=== PATIENT | female | born 1965 | race Caucasian/White ===

== ENCOUNTER 2024-10-28 23:37 | Inpatient (IN) | payer MEDICARE, SELFPAY ==
--- NOTE | 2024-10-28 23:47 | ED_ITS ---
Discharge Plan Disposition Patient Disposition: Admitted Condition: Fair Chief Complaint: Nausea/Vomiting/Diarrhea Prescriptions Prescriptions: No Action atorvastatin 40 mg Tablet 40 mg PO DAILY hydrochlorothiazide 25 mg Tablet 25 mg PO DAILY ergocalciferol (vitamin D2) [Drisdol] 1,250 mcg (50,000 unit) Capsule 1,250 mcg PO WEEKLY estradiol 0.01 % (0.1 mg/gram) Cream 1 appful VAGINAL DAILY Rx Instructions: for 14 days albuterol sulfate 2.5 mg/0.5 mL Solution For Nebulization 2.5 mg INHALATION Q20M Rx Instructions: for up to 3 doses Zyrtec 10 mg Capsule 10 mg PO DAILY cariprazine 1.5 mg Capsule 1.5 mg PO DAILY potassium chloride 10 mEq Capsule, Extended Release 10 meq PO BID levothyroxine [Synthroid] 75 mcg Tablet 75 mcg PO DAILY hydroxyzine HCl [Atarax] 25 mg Tablet 25 mg PO DAILY venlafaxine [Effexor XR] 75 mg Capsule,Extended Release 24hr 75 mg PO DAILY sumatriptan succinate [Imitrex] 50 mg Tablet 50 mg PO Q2H PRN (Reason: Migraine) Rx Instructions: do not exceed 4 doses per 24 hrs thiamine HCl (vitamin B1) 100 mg Tablet 100 mg PO DIRECTED spironolactone [Aldactone] 25 mg Tablet 25 mg PO DAILY promethazine 25 mg Tablet 25 mg PO TID PRN (Reason: Nausea And Vomiting) oxycodone-acetaminophen [Percocet] 7.5-325 mg Tablet 1 tab PO Q6H PRN (Reason: Wound Healing) topiramate [Topamax] 100 mg Tablet 100 mg PO DAILY nystatin 1 billion unit Powder 1 unit PO 5XDAY tizanidine [Zanaflex] 4 mg Capsule 4 mg PO DAILY Referrals Follow up/Referrals: Lunsford,Viral, DO [Primary Care Provider] - See instructions Clinical Impressions Clinical Impression: Pancolitis, Hyponatremia, Hypokalemia, Diarrhea Instructions Patient Instructions: DI for Diarrhea and Traveler's Diarrhea -- Adult, DI for Diarrhea and Traveler's Diarrhea -- Child, DI for Nausea -- Adult, DI for Nausea -- Child Discharge ED Provider: Merna Osullivan Adult [facility] General Chief complaint: Nausea/Vomiting/Diarrhea Stated complaint: diarrhea, blood in stool, nausea Time Seen by Provider: 10/28/24 23:40 History of Present Illness HPI narrative: 58-year-old female with a history of gastric bypass 3 years ago and reported previous admission for low potassium presents to the ER for complaints of diarrhea, nausea, diffuse abdominal discomfort. Reportedly she started having diarrhea 5 days ago, in the last 2 days she has had dark, tarry stool as well as blood-streaked stool. No fevers. She reports nausea but no vomiting. Patient does not drink any alcohol, no marijuana or illicit drugs. She reports no dysuria or hematuria. Patient reports no known sick exposures. She is drinking but states she has not been eating. Reports 10 pounds weight loss in the last week secondary to symptoms. Related Data Home Medications ?Medication ?Instructions ?Recorded ?Confirmed albuterol sulfate 2.5 mg/0.5 mL 2.5 mg inhalation Q20M 10/29/24 10/29/24 solution for nebulization atorvastatin 40 mg tablet 40 mg PO DAILY 10/29/24 10/29/24 cariprazine 1.5 mg capsule 1.5 mg PO DAILY 10/29/24 10/29/24 cetirizine 10 mg capsule (Zyrtec) 10 mg PO DAILY 10/29/24 10/29/24 ergocalciferol (vitamin D2) 1,250 1,250 mcg PO WEEKLY 10/29/24 10/29/24 mcg (50,000 unit) capsule estradiol 0.01% (0.1 mg/gram) 1 appful vaginal DAILY 10/29/24 10/29/24 vaginal cream hydrochlorothiazide 25 mg tablet 25 mg PO DAILY 10/29/24 10/29/24 hydroxyzine HCl 25 mg tablet 25 mg PO DAILY 10/29/24 10/29/24 levothyroxine 75 mcg tablet 75 mcg PO DAILY 10/29/24 10/29/24 (Synthroid) nystatin 1 billion unit oral powder 1 unit PO 5XDAY 10/29/24 10/29/24 oxycodone-acetaminophen 7.5 mg-325 1 tab PO Q6H PRN Wound Healing 10/29/24 10/29/24 mg tablet (Percocet) potassium chloride 10 mEq 10 meq PO BID 10/29/24 10/29/24 capsule,extended release promethazine 25 mg tablet 25 mg PO TID PRN Nausea And 10/29/24 10/29/24 Vomiting spironolactone 25 mg tablet 25 mg PO DAILY 10/29/24 10/29/24 (Aldactone) sumatriptan succinate 50 mg tablet 50 mg PO Q2H PRN Migraine 10/29/24 10/29/24 (Imitrex) thiamine HCl (vitamin B1) 100 mg 100 mg PO DIRECTED 10/29/24 10/29/24 tablet tizanidine 4 mg capsule (Zanaflex) 4 mg PO DAILY 10/29/24 10/29/24 topiramate 100 mg tablet (Topamax) 100 mg PO DAILY 10/29/24 10/29/24 venlafaxine 75 mg capsule,extended 75 mg PO DAILY 10/29/24 10/29/24 release 24 hr (Effexor XR) Allergies Allergy/AdvReac Type Severity Reaction Status Date / Time escitalopram (From Lexapro) Allergy Unknown Verified 10/28/24 23:59 allergy reaction [facility] Disclaimer: The information contained in this section may have been updated after the patient was seen, as this information can be updated by other users. Social History Smoking Status: Unknown if ever smoked alcohol intake: never current occupational status: other Travel in the last 8 weeks?: None ROS Obtained: Yes Systems reviewed as appropriate & no additional complaints except as documented Per HPI Physical Exam General General appearance: alert, in no apparent distress and obese Head Head exam: atraumatic and normocephalic Eye Eye exam: Present PERRL and EOMI ENT ENT exam: Present mucous membranes moist Neck Neck exam: Present normal inspection and full ROM Chest Chest inspection: Present symmetric chest wall rise Respiratory Respiratory exam: Present normal lung sounds bilaterally; Absent respiratory distress, wheezes or stridor Cardiovascular Cardiovascular exam: Present normal rhythm and tachycardia Abdominal Exam Abdominal exam: Present soft and tenderness (Mild diffuse); Absent distention, guarding or rebound Extremities Exam Extremities exam: Present full ROM Neurological Exam Neurological exam: Present alert and oriented X3; Absent motor sensory deficit Psychiatric Psychiatric exam: Present normal affect and normal mood Skin Skin exam: Present warm and dry Medical Decision Making Medical Records Screening: Per USPSTF and CDC recommendations, given the prevalence of disease in our region, it is our hospital?s policy to screen for HIV and viral Hepatitis for all patients aged 18 and over and those with ongoing risk factors. Jak Inquiry Pt receiving controlled substance: No Vital Signs: 10/28/24 23:59 10/29/24 00:00 10/29/24 01:00 Temperature 97.9 F Temperature Source Oral Pulse Rate 119 H Pulse Rate [Left] 123 H Respiratory Rate 18 20 12 Blood Pressure Blood Pressure [Right Arm] 133/105 H Blood Pressure Mean [Right Arm] 114 02 Sat by Pulse Oximetry 96 96 Oxygen Delivery Method Room Air 10/29/24 01:30 Temperature Temperature Source Pulse Rate 105 H Pulse Rate [Left] Respiratory Rate 11 L Blood Pressure 140/98 H Blood Pressure [Right Arm] Blood Pressure Mean [Right Arm] 02 Sat by Pulse Oximetry 96 Oxygen Delivery Method Lab Data Lab Results 10/28/24 23:53: WBC 26.9 H*, RBC 5.65 H, Hgb 16.9 H, Hct 48.0 H, MCV 85.0, MCH 29.9, MCHC 35.2, RDW 13.4, Plt Count 355, MPV 10.9 H, Neut % (Auto) 80.6 H, Lymph % (Auto) 10.3, [place] % (Auto) 8.0, Eos % (Auto) 0.1, Baso % (Auto) 0.4, N eut # (Auto) 21.7 H, Lymph # (Auto) 2.8, [place] # (Auto) 2.1 H, Eos # (Auto) 0.0, Baso # (Auto) 0.1, Sodium 127 L, Potassium 2.6 L*, Chloride 95 L, Carbon Dioxide 23, Anion Gap 11.6, BUN 18 H, Creatinine 1.20 H, Estimated GFR 46 L, Est GFR ( Amer) 55 L, Glucose 178 H, Calcium 8.4, Total Bilirubin 0.6, AST 23, ALT 21, Alkaline Phosphatase 102, Troponin I 0.03, Total Protein 6.9, Albumin 4.0, Globulin 2.9, Albumin/Globulin Ratio 1.4 10/29/24 00:44: Lactate 2.0 10/28/24 23:53 10/28/24 23:53 Orders (Tests/Meds): ED MEDICATIONS Generic Name Dose Route Start Last Admin Trade Name Freq PRN Reason Stop Dose Admin Potassium Chloride/Water 100 mls @ 50 mls/hr 10/29/24 00:30 10/29/24 01:10 Potassium Chloride 20meq/100ml Ivpb IV 10/29/24 06:29 50 mls/hr Q2H JOSLYN Administration Discontinued Medications Generic Name Dose Route Start Last Admin Trade Name Marloq PRN Reason Stop Dose Admin Lactated Ringer's 1,000 mls @ 999 mls/hr 10/28/24 23:41 10/29/24 00:01 Lactated Ringer's 1000 Ml Bag IV 10/29/24 00:41 999 mls/hr .Q1H1M ONE Administration Cefepime HCl 2 gm/ Sodium 100 mls @ 200 mls/hr 10/29/24 00:28 Chloride IV 10/29/24 00:57 ONCE ONE Metronidazole 500 mg in 100 mls @ 100 mls/hr 10/29/24 00:28 10/29/24 01:10 Flagyl 500mg/100ml Ivpb IV 10/29/24 01:27 100 mls/hr ONCE ONE Administration Lactated Ringer's 1,000 mls @ 999 mls/hr 10/29/24 00:28 10/29/24 01:10 Lactated Ringer's 1000 Ml Bag IV 10/29/24 01:28 999 mls/hr .Q1H1M ONE Administration Iopamidol 80 ml 10/29/24 00:29 10/29/24 00:33 Iopamidol-370 (76%);100ml Bottle IV 10/29/24 00:30 80 ml ONCE ONE Administration Ondansetron HCl 4 mg 10/28/24 23:41 10/29/24 00:01 Ondansetron 4mg/2ml Vial IV 10/28/24 23:42 4 mg ONCE ONE Administration Sodium Chloride 50 ml 10/29/24 00:29 10/29/24 00:34 0.9 % Sodium Chloride 50 Ml Vial IV 10/29/24 00:30 50 ml ONCE ONE Administration Sodium Chloride 10 ml 10/29/24 00:29 10/29/24 00:34 Sodium Chloride 0.9% 10ml Syr (Rad Only) IV 10/29/24 00:30 10 ml ONCE ONE Administration ORDERS Category Date Time Status CT angio abd/pel - GI Bleed Stat Cat Scan 10/28/24 23:56 Completed CBC w/Auto Diff [Complete Blood Count Auto Diff] Stat Lab 10/28/24 23:53 Results CMP [Comprehensive Metabolic Panel] Stat Lab 10/28/24 23:53 Completed Diarrhea 6-11 Panel, Cdiff PCR Stat Lab 10/28/24 23:46 Ordered HIV Combo Stat Lab 10/29/24 00:14 Received Hepatitis C Ab Qual. W/ RFX Stat Lab 10/29/24 00:14 Received Lactic Acid Stat Lab 10/28/24 23:41 Completed Occult Blood,Stool Stat Lab 10/29/24 01:43 Ordered Trop I [Troponin I] Stat Lab 10/28/24 23:53 Completed Troponin I Q3H Lab 10/29/24 02:45 Ordered Troponin I Q3H Lab 10/29/24 05:45 Ordered Blood Culture Stat Micro 10/29/24 01:52 Ordered ECG Request Stat Y 10/28/24 23:41 Ordered Tissue Perfus/Sepsis Re-Eval Sepsis Re-Evaluation Performed: Yes Date Performed: 10/29/24 Time Performed: 02:00 Medical Decision Narrative: In summary, this 58-year-old female with comorbidities described in the HPI presents to the emergency department today with diffuse abdominal discomfort, diarrhea, nausea, tarry/bloody stool. On initial evaluation patient is tachycardic but otherwise hemodynamically stable, afebrile, she has mild diffuse tenderness to palpation of the abdomen without rebound or guarding, no peritonitic findings, rectal exam without overt bleeding. Differential diagnosis includes but is not limited to viral syndrome, diverticulosis, diverticulitis, pancreatitis, I have low suspicion for but did consider the possibility of mesenteric ischemia, also considered upper GI bleed, lower GI bleed, anemia, electrolyte abnormality, dehydration, kidney dysfunction, atypical presentation of ACS, among others. Based on these concerns, I ordered serum labs, diarrhea panel, cardiac workup, CT imaging. ECG personally interpreted demonstrates sinus tachycardia, rate 123, left axis deviation, normal WA and QTc, no STEMI. Labs personally reviewed demonstrate significant leukocytosis with WBC 26.9, no anemia, platelets normal, patient does have neutrophil predominance, patient has hyponatremia, hypokalemia, hypochloremia consistent with volume losses. BUN and creatinine are slightly elevated but no comparison from previous. Initial troponin 0.03 but ECG is reassuring. Serial troponin pending. Patient has not yet been able to provide diarrhea sample. CT abdomen pelvis personally interpreted does not demonstrate findings of obstruction or ischemia, questionable area of bleeding versus dense material or contrast in the lumen of the intestines. Pancolitis present. See radiology read for final interpretation. While patient does possibly have active bleeding on imaging, she is hemodynamically stable with no evidence of blood loss in the ER. She has not been able to provide a stool sample which is reassuring against severe loss. She also is not anemic or pale and has normal capillary refill. Patient's labs and vitals are concerning for sepsis with the source of intra- abdominal infection. Patient is already receiving IV fluids but I also ordered cefepime and Flagyl. Patient is receiving 2 L IV fluids for 30 mL/kg between the patient's ideal body weight and adjusted body weight. Blood cultures added to workup. On reevaluation patient's heart rate is improved. Hemoccult pending. I believe she is appropriate for admission at this time. I discussed this case with the hospitalist who graciously accepted the patient for admission. Critical Care Critical Care Time Critical Care Time: Yes Attestation: On , the high probability of a clinically significant, sudden or life threatening deterioration of the following system(s) required my full and direct attention, intervention and personal management. The time I documented below is in addition to time spent performing reported procedures but includes the following listed in this critical care notation. Total Time Total Critical Care Time: 35
--- NOTE | 2024-10-28 23:56 | CT_ITS ---
PROCEDURE INFORMATION: Exam: CTA Abdomen and Pelvis With Contrast Exam date and time: 10/29/2024 12:26 AM Age: 58 years old Clinical indication: Abdominal pain; Acute; Additional info: Diffuse abd discomfort, tarry/bloody stool TECHNIQUE: Imaging protocol: Computed tomographic angiography of the abdomen and pelvis with contrast. Exam focused on the arteries. 3D rendering (Not supervised by radiologist): MIP and/or 3D reconstructed images were created by the technologist. Radiation optimization: All CT scans at this facility use at least one of these dose optimization techniques: automated exposure control; mA and/or kV adjustment per patient size (includes targeted exams where dose is matched to clinical indication); or iterative reconstruction. Contrast material: ISOVUE; Contrast volume: 80 ml; Contrast route: INTRAVENOUS (IV); COMPARISON: No relevant prior studies available. FINDINGS: Aorta: No aortic aneurysm. No aortic dissection. Celiac trunk and mesenteric arteries: No occlusion or significant stenosis. Renal arteries: No occlusion or significant stenosis. Right iliac arteries: No occlusion or significant stenosis. Left iliac arteries: No occlusion or significant stenosis. Liver: No mass. Gallbladder and biliary ducts: Cholecystectomy Pancreas: Unremarkable. No mass. No ductal dilation. Spleen: Unremarkable. No splenomegaly. Adrenal glands: Unremarkable. No mass. Kidneys and ureters: Cortical scarring right kidney. No hydronephrosis Stomach and bowel: Severe colitis in the descending, transverse, ascending colons with wall thickening and surrounding inflammatory changes. No small bowel obstruction. There is hyperdensity within the cecum and ileocecal region and distal ileum the as well as scattered in the descending colon and rectosigmoid colons the which could reflect a administration of prior oral contrast or less likely multiple areas of active GI bleeding. Postsurgical changes in the stomach Appendix: No evidence of appendicitis. Intraperitoneal space: Mild free fluid in the pelvis Lymph nodes: Unremarkable. No enlarged lymph nodes. Urinary bladder: Unremarkable. No mass. Reproductive: Hysterectomy Bones/joints: No acute fracture. Soft tissues: Unremarkable. IMPRESSION: 1. Severe near pancolitis. 2. There is hyperdensity within the cecum and ileocecal region and distal ileum the as well as scattered in the descending colon and rectosigmoid colons the which could reflect a administration of prior oral contrast or less likely multifocal areas of active GI bleeding. Correlate clinically
--- NOTE | 2024-10-28 23:56 | ECG_ITS ---
APPROVED REPORT Exam: Resting ECG HR:123 bpm ECG Measurements Heart Rate 123 AXES UT 161 P 54 QRSd 94 QRS -68 QT 417 T 78 QTc 490 Conclusion SINUS TACHYCARDIA LEFT AXIS DEVIATION [QRS AXIS < -30] PATTERN CONSISTENT WITH PULMONARY DISEASE ST DEVIATION AND MODERATE T-WAVE ABNORMALITY, CONSIDER LATERAL ISCHEMIA [-0.1+ mV T-WAVE IN I/aVL/V5/V6] No STEMI Electronically signed by : LISA MCLEAN, 10/29/2024 05:18:35
[2024-10-28 23:59] VITALS: BP 133/105; PULSE 123; RESP 18; TEMP 36.6; O2SAT 96; BMI 39.1
[2024-10-29] VITALS (11 sets, daily range): BP systolic 132–162; BP diastolic 68–99; PULSE 86–119; RESP 11–20; TEMP 36.5–37.1; O2SAT 92–100; BMI 39.9
[2024-10-29] LABS: Basophils # 0.1 K/mm3 (0-0.2); Basophils % 0.4 % (0.1-2.0); Eosinophils % 0.1 % (0.1-12.0); Hemoglobin 16.9 g/dL (12.2-16.2); Lymphocytes # 2.8 K/mm3 (0.7-4.5); Lymphocytes % 10.3 % (10-50); Mean Corpuscular HGB Conc 35.2 g/dL (31.8-35.4); Mean Corpuscular Hemoglobin 29.9 pg (27.0-31.2); Mean Platelet Volume 10.9 fl (7.4-10.4); Monocytes # 2.1 K/mm3 (0.1-1.0); Neutrophils # 21.7 K/mm3 (1.8-7.8); Neutrophils % 80.6 % (37.0-80.0); Nucleated Red Blood Cells # 0 10^3/uL; Nucleated Red Blood Cells % 0 %; Platelet Count 355 K/mm3 (142-424); Red Blood Count 5.65 M/mm3 (4.20-5.40); Red Cell Distribution Width 13.4 % (11.5-17.5); Red Cell Distribution Width-SD 41.5 fL; White Blood Count 26.9 K/mm3 (4.8-10.8)
[2024-10-29] MEDS: LACTATED RINGERS 1000ML 1,000 ML 999 ML IV ×2 (00:01→01:10)
[2024-10-29] MEDS: ONDANSETRON 4MG/2ML VIAL 4 MG IV ×3 (00:01→20:39)
[2024-10-29 00:12] LABS: Alanine Aminotransferase 21 U/L (12-78); Albumin/Globulin Ratio 1.4 (1.1-1.8); Alkaline Phosphatase 102 U/L (38-126); Anion Gap 11.6 mEq/L (5-15); Aspartate Amino Transferase 23 U/L (14-36); Bilirubin,Total 0.6 mg/dl (0.2-1.3); Blood Urea Nitrogen 18 mg/dl (7-17); Calcium 8.4 mg/dl (8.4-10.2); Carbon Dioxide 23 mmol/L (22.0-30.0); Chloride 95 mmol/L (98-107); Estimated Glomerular Filt Rate 46 ml/min (>60); GFR (African American) 55 ML/MIN (>60); Globulin 2.9 g/dL (1.3-3.2); Glucose 178 mg/dl (74-100); Sodium 127 mmol/L (136-145); Total Protein,Serum 6.9 g/dl (6.3-8.2)
[2024-10-29 00:15] LABS: MANUAL DIFFERENTIAL MANUAL DIFFERENTIAL (MANUAL DIFF)
[2024-10-29 00:16] LABS: Potassium 2.6 mmoL/L (3.5-5.1)
[2024-10-29 00:24] LABS: Troponin I 0.03 ng/ml (0.00-0.034)
[2024-10-29] MEDS: IOPAMIDOL-370 (76%);100ML BOTTLE 80 ML IV (00:33)
[2024-10-29] MEDS: 0.9 % SODIUM CHLORIDE 50 ML VIAL IV (00:34)
[2024-10-29] MEDS: SODIUM CHLORIDE 0.9% 10ML SYR (RAD ONLY) 10 ML IV (00:34)
[2024-10-29] MEDS: METRONIDAZ/SOD CHL 500 MG/100 ML PIGGYBACK 100 MG IV ×2 (01:10→08:28)
[2024-10-29] MEDS: KCl 20mEq/100ml 100 ML 50 MEQ IV ×3 (01:10→06:04)
[2024-10-29 02:03] LABS: Occult Blood,Stool Positive (Negative)
[2024-10-29] MEDS: CEFEPIME HCL 2 GM in 0.9 % SODIUM CHLORIDE 100 ML IV (02:20)
[2024-10-29 02:32] LABS: HIV Combo NEGATIVE (Negative)
--- NOTE | 2024-10-29 02:34 | P.HP_ITS ---
History of Present Illness *Reason for visit:: diarrhea *History of present illness: 58-year-old female comes ER for evaluation of abdominal pain, diarrhea, poor p.o. intake, possibly melena. Started having diarrhea 5 days ago, in the last 2 days she has had dark, tarry stool as well as blood-streaked stool. Has not been able to tolerate p.o. food intake for the last few days and feels that her symptoms have been progressing. No dietary changes. Has been tolerating some fluid intake. No fevers. She reports nausea but no vomiting. Received cefepime and Flagyl in the emergency department in addition to IV fluids. Stool occult positive No current stool sample in the ER. Patient does not drink any alcohol, no marijuana or illicit drugs. She reports no dysuria or hematuria. Patient reports no known sick exposures. She is drinking but states she has not been eating. Reports 10 pounds weight loss in the last week secondary to symptoms. history of gastric bypass 3 years ago, previous admission for hypokalemia CTA abdomen pelvis IMPRESSION: 1. Severe near pancolitis. 2. There is hyperdensity within the cecum and ileocecal region and distal ileum the as well as scattered in the descending colon and rectosigmoid colons the which could reflect a administration of prior oral contrast or less likely multifocal areas of active GI bleeding. Correlate clinically PFSH [facility] Disclaimer: The information contained in this section may have been updated after the patient was seen, as this information can be updated by other users. Social History (Updated 10/29/24 @ 02:00 by Orestes Osullivan MD) Smoking Status: Unknown if ever smoked alcohol intake: never current occupational status: other Travel in the last 8 weeks?: None Have you lived/traveled outside US in past 30 days?: No Contact w/someone who lives/traveled outside US past 30 days?: No Exposure to someone with infectious disease in past 14 days?: No Do you have a fever (greater than 100.4 F or 38 C)?: No Have you tested positive for COVID-19?: No Exposed to someone with COVID-19 in past 14 days?: No Do you have a sore throat?: No Do you have a cough?: No Do you have any weakness?: No Do you have any diarrhea?: Yes Are you experiencing any unusual bleeding?: Yes Do you have any muscle aches/pain?: No Do you have any abdominal pain?: No Are you experiencing loss of taste or smell?: No Review of Systems Review of Systems Review of systems:: pertinent systems reviewed and negative unless documented below Constitutional Constitutional: Reports anorexia and Denies body ache(s) Eyes Eyes: Reports system reviewed and no additional complaints, except as documented ENT Ears, Nose, Mouth, and Throat: Reports system reviewed and no additional complaints, except as documented *Cardiovascular Cardiovascular: Reports system reviewed and no additional complaints, except as documented *Respiratory Respiratory: Reports system reviewed and no additional complaints, except as documented *Gastrointestinal Gastrointestinal: Reports abdominal pain, Reports change in bowel habits and Reports change in stool character *Genitourinary Genitourinary: Reports system reviewed and no additional complaints, except as documented *Musculoskeletal Musculoskeletal: Reports system reviewed and no additional complaints, except as documented *Neurologic Neurologic: Reports system reviewed and no additional complaints, except as documented Psychiatric Psychiatric: Reports system reviewed and no additional complaints, except as documented Meds Home Medications and Allergies Home Medications ?Medication ?Instructions ?Recorded ?Confirmed ?Type albuterol sulfate 2.5 mg/0.5 mL 2.5 mg inhalation Q20M 10/29/24 10/29/24 History solution for nebulization atorvastatin 40 mg tablet 40 mg PO DAILY 10/29/24 10/29/24 History cariprazine 1.5 mg capsule 1.5 mg PO DAILY 10/29/24 10/29/24 History cetirizine 10 mg capsule (Zyrtec) 10 mg PO DAILY 10/29/24 10/29/24 History ergocalciferol (vitamin D2) 1,250 1,250 mcg PO WEEKLY 10/29/24 10/29/24 History mcg (50,000 unit) capsule estradiol 0.01% (0.1 mg/gram) 1 appful vaginal DAILY 10/29/24 10/29/24 History vaginal cream hydrochlorothiazide 25 mg tablet 25 mg PO DAILY 10/29/24 10/29/24 History hydroxyzine HCl 25 mg tablet 25 mg PO DAILY 10/29/24 10/29/24 History levothyroxine 75 mcg tablet 75 mcg PO DAILY 10/29/24 10/29/24 History (Synthroid) nystatin 1 billion unit oral powder 1 unit PO DAY 10/29/24 10/29/24 History oxycodone-acetaminophen 7.5 mg-325 1 tab PO Q6H PRN Wound Healing 10/29/24 10/29/24 History mg tablet (Percocet) potassium chloride 10 mEq 10 meq PO BID 10/29/24 10/29/24 History capsule,extended release promethazine 25 mg tablet 25 mg PO TID PRN Nausea And 10/29/24 10/29/24 History Vomiting spironolactone 25 mg tablet 25 mg PO DAILY 10/29/24 10/29/24 History (Aldactone) sumatriptan succinate 50 mg tablet 50 mg PO Q2H PRN Migraine 10/29/24 10/29/24 History (Imitrex) thiamine HCl (vitamin B1) 100 mg 100 mg PO DIRECTED 10/29/24 10/29/24 History tablet tizanidine 4 mg capsule (Zanaflex) 4 mg PO DAILY 10/29/24 10/29/24 History topiramate 100 mg tablet (Topamax) 100 mg PO DAILY 10/29/24 10/29/24 History venlafaxine 75 mg capsule,extended 75 mg PO DAILY 10/29/24 10/29/24 History release 24 hr (Effexor XR) New Prescriptions to Start Prescriptions: Allergies Allergy/AdvReac Type Severity Reaction Status Date / Time escitalopram (From Lexapro) Allergy Unknown Verified 10/28/24 23:59 allergy reaction Exam Data for Last 24 hours Vital signs and Labs for Last 24 Hours: Temp Pulse Resp BP Pulse Ox O2 Del Method 97.9 F 113 H 12 140/98 H 98 Room Air 10/28/24 23:59 10/29/24 02:00 10/29/24 02:00 10/29/24 01:30 10/29/24 02:00 10/28/24 23:59 Laboratory Results - last 24 hr 10/28/24 00:00: HIV Ag/Ab Combo Qual Negative 10/28/24 23:53: WBC 26.9 H*, RBC 5.65 H, Hgb 16.9 H, Hct 48.0 H, MCV 85.0, MCH 29.9, MCHC 35.2, RDW 13.4, Plt Count 355, MPV 10.9 H, Neut % (Auto) 80.6 H, Lymph % (Auto) 10.3, [place] % (Auto) 8.0, Eos % (Auto) 0.1, Baso % (Auto) 0.4, Neut # (Auto) 21.7 H, Lymph # (Auto) 2.8, [place] # (Auto) 2.1 H, Eos # (Auto) 0.0, Baso # (Auto) 0.1, Sodium 127 L, Potassium 2.6 L*, Chloride 95 L, Carbon Dioxide 23, Anion Gap 11.6, BUN 18 H, Creatinine 1.20 H, Estimated GFR 46 L, Est GFR ( Amer) 55 L, Glucose 178 H, Calcium 8.4, Total Bilirubin 0.6, AST 23, ALT 21, Alkaline Phosphatase 102, Troponin I 0.03, Total Protein 6.9, Albumin 4.0, Globulin 2.9, Albumin/Globulin Ratio 1.4 10/29/24 00:44: Lactate 2.0 10/29/24 01:49: Stool Occult Blood Positive A I & O for Last 24 hours: Intake & Output 10/26/24 10/27/24 10/28/24 10/29/24 23:59 23:59 23:59 23:59 Weight 103.419 kg Constitutional Constitutional: no acute distress *Routine HEENT Exam Head: Present normocephalic Eye: Present EOMI ENT: Present mucous membranes moist *Routine Neck Exam Neck: Present supple and full ROM *Routine Respiratory Exam Respiratory: Present CTA bilaterally; Absent accessory muscle use *Routine Cardiovascular Exam Cardiovascular: Present RRR, Normal S1 and Normal S2; Absent murmur *Routine Abdominal Exam Abdominal: Present soft and normoactive bowel sounds *Routine Rectal Exam Rectal:: deferred *Routine Genitalia Exam Genitalia:: deferred *Routine Extremities Exam Extremities: Absent cyanosis or clubbing *Routine Skin Exam Skin: Present intact; Absent cyanosis *Routine Neurological Exam Neurological: Present alert and oriented X3 Assessment and Plan *Assessment and plan (1) Diarrhea: Status: Acute Category: Medical Code(s): R19.7 - Diarrhea, unspecified (2) Hypokalemia: Status: Acute Category: Medical Code(s): E87.6 - Hypokalemia (3) Pancolitis: Status: Acute Category: Medical Code(s): K52.9 - Noninfective gastroenteritis and colitis, unspecified Plan 58-year-old prior gastric bypass, admitted for Pancolitis. Additionally having poor p.o. intake and multiple electrolyte derangements. Antibiotics administered in the emergency department. Will try to obtain stool culture. Supportive management otherwise. GI consultation in the morning Pancolitis Melena - Cefepime - Flagyl - Obtain stool culture - GI consult hyponatremia, hypovolemic, normal mentation - Saline - Monitor Hypokalemia - Replete CKD - Reportedly stage III per patient, unknown creatinine baseline, will monitor dvt proph - held due to bleeding, lovenox in am gi ppx- ppi
[2024-10-29 02:37] LABS: Lymphocytes % 7 % (10-50); Monocytes % 1 % (2-9); Neutrophils % 92 % (42-76); Total Cells Counted 100
--- NOTE | 2024-10-29 02:37 | PC.NURSE ---
report called to [facility]
[2024-10-29 02:39] LABS: Hepatitis C Ab Qual. W/ RFX NEGATIVE (Negative)
[2024-10-29 02:39] LABS: Platelet Estimate Normal; Stomatocytes 1+
--- NOTE | 2024-10-29 02:51 | PC.NURSE ---
Patient arrived to floor via wheelchair from ED at 02:50.
[2024-10-29 03:14] LABS: Troponin I 0.03 ng/ml (0.00-0.034)
[2024-10-29] MEDS: MELATONIN 5MG TABLET 5 MG PO ×2 (03:20→20:39)
[2024-10-29] MEDS: TIZANIDINE 4MG TABLET 4 MG PO (03:21)
[2024-10-29] MEDS: LACTATED RINGERS 1000ML 1,000 ML 50 ML IV (03:23)
[2024-10-29 06:18] LABS: Basophils # 0.1 K/mm3 (0-0.2); Basophils % 0.4 % (0.1-2.0); Eosinophils % 0.2 % (0.1-12.0); Hematocrit 42.8 % (37.0-47.0); Lymphocytes # 2.8 K/mm3 (0.7-4.5); Lymphocytes % 12.6 % (10-50); Mean Corpuscular HGB Conc 34.6 g/dL (31.8-35.4); Mean Corpuscular Volume 86.8 fl (81-99); Monocytes % 8.8 % (1.7-9.3); Neutrophils # 17.4 K/mm3 (1.8-7.8); Neutrophils % 77.4 % (37.0-80.0); Nucleated Red Blood Cells # 0 10^3/uL; Nucleated Red Blood Cells % 0 %; Platelet Count 297 K/mm3 (142-424); Red Blood Count 4.93 M/mm3 (4.20-5.40); Red Cell Distribution Width 13.3 % (11.5-17.5); White Blood Count 22.5 K/mm3 (4.8-10.8)
[2024-10-29 06:23] LABS: Hemoglobin 14.8 g/dL (12.2-16.2)
[2024-10-29 06:37] LABS: Troponin I 0.03 ng/ml (0.00-0.034)
[2024-10-29] MEDS: ACETAMINOPHEN 325MG TAB 650 MG PO (07:41)
[2024-10-29 08:03] LABS: Albumin Level 3.1 g/dl (3.5-5.0); Chloride 97 mmol/L (98-107); Sodium 127 mmol/L (136-145)
[2024-10-29 08:05] LABS: Alanine Aminotransferase 14 U/L (12-78); Blood Urea Nitrogen 14 mg/dl (7-17); Creatinine Clearance Estimated 91 mL/min (50-200); Estimated Glomerular Filt Rate 51 ml/min (>60); GFR (African American) 61 ML/MIN (>60)
[2024-10-29 08:06] LABS: Albumin/Globulin Ratio 1.1 (1.1-1.8); Alkaline Phosphatase 91 U/L (38-126); Anion Gap 9.6 mEq/L (5-15); Aspartate Amino Transferase 29 U/L (14-36); Bilirubin,Total 0.5 mg/dl (0.2-1.3); Carbon Dioxide 23 mmol/L (22.0-30.0); Globulin 2.8 g/dL (1.3-3.2); Glucose 141 mg/dl (74-100); Magnesium 1.9 mg/dl (1.6-2.3); Phosphorous 2.4 mg/dl (2.5-4.5); Total Protein,Serum 5.9 g/dl (6.3-8.2)
--- NOTE | 2024-10-29 08:06 | P.CONS_ITS ---
History of Present Illness *History of present illness: Mrs. Naidu is a 58-year-old female who presented to the ED yesterday with diarrhea, abdominal pain and hematochezia/rectal bleeding with dark blood and clots. The patient states this all began about 5 or 6 days ago. She normally has constipation but then reverted to having diarrhea. She thought this may be related to her lupus but then she developed more abdominal pain 4 days ago. She has had a lot of gassiness and bloating. She had more intense cramps yesterday and came to the ED. In the ED, she had a CAT scan that showed severe pancolitis there was hyperdensity within the cecum and ileocecal region and distal ileum as well as an the descending and rectosigmoid region. This was felt to possibly be related to prior contrast. The patient did have a Nana-en-Y gastric bypass in 2021. She has had some long-term digestive issues and had been followed by [facility] in [facility]. The patient has had gradual weight loss since the bypass. She reports no mucus with her stools or family history of colon cancer. She does state that her last colonoscopy was approximately 5 years ago at [place] and she states that she would be due next year. Her father had multiple polyps (19 polyps on one colonoscopy). The patient has had several abdominal and pelvic surgeries (cholecystectomy, hysterectomy, 4 C-sections and left oophorectomy). She reports no fever. The patient's white blood cell count was 22,000 this morning. She is not anemic but her hemoglobin hematocrit declined from 16.9 and 48.0 down to 14.8 and 42.8. Her liver chemistries were normal. She does have stage III chronic kidney disease and her creatinine was 1.20. She is Hemoccult positive but PCR panel is not returned. [facility] Disclaimer: The information contained in this section may have been updated after the patient was seen, as this information can be updated by other users. Medical History (Updated 10/29/24 @ 08:12 by Jason Miles II, MD) Prolapse of uterus with rectocele Osteoarthritis Fibromyalgia Lupus Chronic kidney disease, stage 3 Irritable bowel syndrome (IBS) Hypertension Asthma Surgical History (Updated 10/29/24 @ 03:33 by Reyna Quinn RN) History of colonoscopy Hx of cholecystectomy H/O hernia repair History of removal of ovarian cyst History of H/O removal of cyst History of tonsillectomy Hx of breast reduction, elective Gastric bypass status for obesity Social History (Updated 10/29/24 @ 03:33 by Reyna Quinn RN) Smoking Status: Never smoker alcohol intake: never current occupational status: disabled Travel in the last 8 weeks?: None Have you lived/traveled outside US in past 30 days?: No Contact w/someone who lives/traveled outside US past 30 days?: No Exposure to someone with infectious disease in past 14 days?: No Do you have a fever (greater than 100.4 F or 38 C)?: No Have you tested positive for COVID-19?: No Exposed to someone with COVID-19 in past 14 days?: No Do you have a sore throat?: No Do you have a cough?: No Do you have any weakness?: No Are you experiencing any nausea/vomitting?: Yes Do you have any diarrhea?: Yes Are you experiencing any unusual bleeding?: Yes Do you have any muscle aches/pain?: No Do you have any abdominal pain?: No Are you experiencing loss of taste or smell?: No Review of Systems *Neurologic Neurologic: Reports system reviewed and no additional complaints, except as documented Meds Home Medications and Allergies Home Medications ?Medication ?Instructions ?Recorded ?Confirmed ?Type albuterol sulfate 2.5 mg/0.5 mL 2.5 mg inhalation Q20M 10/29/24 10/29/24 History solution for nebulization atorvastatin 40 mg tablet 40 mg PO DAILY 10/29/24 10/29/24 History cariprazine 1.5 mg capsule 1.5 mg PO DAILY 10/29/24 10/29/24 History cetirizine 10 mg capsule (Zyrtec) 10 mg PO DAILY 10/29/24 10/29/24 History ergocalciferol (vitamin D2) 1,250 1,250 mcg PO WEEKLY 10/29/24 10/29/24 History mcg (50,000 unit) capsule estradiol 0.01% (0.1 mg/gram) 1 appful vaginal DAILY 10/29/24 10/29/24 History vaginal cream hydrochlorothiazide 25 mg tablet 25 mg PO DAILY 10/29/24 10/29/24 History hydroxyzine HCl 25 mg tablet 25 mg PO DAILY 10/29/24 10/29/24 History levothyroxine 75 mcg tablet 75 mcg PO DAILY 10/29/24 10/29/24 History (Synthroid) nystatin 1 billion unit oral powder 1 unit PO 5XDAY 10/29/24 10/29/24 History oxycodone-acetaminophen 7.5 mg-325 1 tab PO Q6H PRN Wound Healing 10/29/24 10/29/24 History mg tablet (Percocet) potassium chloride 10 mEq 10 meq PO BID 10/29/24 10/29/24 History capsule,extended release promethazine 25 mg tablet 25 mg PO TID PRN Nausea And 10/29/24 10/29/24 History Vomiting spironolactone 25 mg tablet 25 mg PO DAILY 10/29/24 10/29/24 History (Aldactone) sumatriptan succinate 50 mg tablet 50 mg PO Q2H PRN Migraine 10/29/24 10/29/24 History (Imitrex) thiamine HCl (vitamin B1) 100 mg 100 mg PO DIRECTED 10/29/24 10/29/24 History tablet tizanidine 4 mg capsule (Zanaflex) 4 mg PO DAILY 10/29/24 10/29/24 History topiramate 100 mg tablet (Topamax) 100 mg PO DAILY 10/29/24 10/29/24 History venlafaxine 75 mg capsule,extended 75 mg PO DAILY 10/29/24 10/29/24 History release 24 hr (Effexor XR) New Prescriptions to Start Prescriptions: Allergies Allergy/AdvReac Type Severity Reaction Status Date / Time escitalopram (From Sunglass) Allergy Unknown Verified 10/28/24 23:59 allergy reaction Exam (Inpt) Vital signs and Labs for Last 24 Hours: Temp Pulse Resp BP Pulse Ox O2 Del Method 98.3 F 108 H 16 162/99 H 92 L Room Air 10/29/24 03:11 10/29/24 03:11 10/29/24 03:11 10/29/24 03:11 10/29/24 03:11 10/29/24 06:34 Laboratory Results - last 24 hr 10/28/24 00:00: HCV Ab STALIN w/Rflx PCR Qn Negative, HIV Ag/Ab Combo Qual Negative 10/28/24 23:53: WBC 26.9 H*, RBC 5.65 H, Hgb 16.9 H, Hct 48.0 H, MCV 85.0, MCH 29.9, MCHC 35.2, RDW 13.4, Plt Count 355, MPV 10.9 H, Neut % (Auto) 80.6 H, Lymph % (Auto) 10.3, [place] % (Auto) 8.0, Eos % (Auto) 0.1, Baso % (Auto) 0.4, N eut # (Auto) 21.7 H, Lymph # (Auto) 2.8, [place] # (Auto) 2.1 H, Eos # (Auto) 0.0, Baso # (Auto) 0.1, Total Counted 100, Neutrophils % (Manual) 92 H, Lymphocytes % (Manual) 7 L, Monocytes % (Manual) 1 L, Platelet Estimate Normal, Stomatocytes 1+, Sodium 127 L, Potassium 2.6 L*, Chloride 95 L, Carbon Dioxide 23, Anion Gap 11.6, BUN 18 H, Creatinine 1.20 H, Estimated GFR 46 L, Est GFR ( Amer) 55 L, Glucose 178 H, Calcium 8.4, Total Bilirubin 0.6, AST 23, ALT 21, Alkaline Phosphatase 102, Troponin I 0.03, Total Protein 6.9, Albumin 4.0, Globulin 2.9, Albumin/Globulin Ratio 1.4 10/29/24 00:44: Lactate 2.0 10/29/24 01:49: Stool Occult Blood Positive A 10/29/24 02:43: Troponin I 0.03 10/29/24 05:51: WBC 22.5 H*, RBC 4.93, Hgb 14.8 D, Hct 42.8, MCV 86.8, MCH 30.0, MCHC 34.6, RDW 13.3, Plt Count 297, MPV 11.0 H, Neut % (Auto) 77.4, Lymph % (Auto) 12.6, [place] % (Auto) 8.8, Eos % (Auto) 0.2, Baso % (Auto) 0.4, Neut # (Auto) 17.4 H, Lymph # (Auto) 2.8, [place] # (Auto) 2.0 H, Eos # (Auto) 0.0, Baso # (Auto) 0.1 10/29/24 05:56: Troponin I 0.03 I & O for Labs for Last 24 Hours: Intake & Output 10/26/24 10/27/24 10/28/24 10/29/24 23:59 23:59 23:59 23:59 Output Total 0 / 0 Balance 0 / 0 Weight 228 lb 233 lb 9.6 oz GI: Present soft Comments:: Mild gaseous distention and moderate tenderness in the lower quadrants, no rebound or guarding, no masses, no hernias Results Labs 10/29/24 05:51 10/28/24 23:53 Labs: Laboratory Results - last 24 hr 10/28/24 00:00: HCV Ab STALIN w/Rflx PCR Qn Negative, HIV Ag/Ab Combo Qual Negative 10/28/24 23:53: WBC 26.9 H*, RBC 5.65 H, Hgb 16.9 H, Hct 48.0 H, MCV 85.0, MCH 29.9, MCHC 35.2, RDW 13.4, Plt Count 355, MPV 10.9 H, Neut % (Auto) 80.6 H, Lymph % (Auto) 10.3, [place] % (Auto) 8.0, Eos % (Auto) 0.1, Baso % (Auto) 0.4, N eut # (Auto) 21.7 H, Lymph # (Auto) 2.8, [place] # (Auto) 2.1 H, Eos # (Auto) 0.0, Baso # (Auto) 0.1, Total Counted 100, Neutrophils % (Manual) 92 H, Lymphocytes % (Manual) 7 L, Monocytes % (Manual) 1 L, Platelet Estimate Normal, Stomatocytes 1+, Sodium 127 L, Potassium 2.6 L*, Chloride 95 L, Carbon Dioxide 23, Anion Gap 11.6, BUN 18 H, Creatinine 1.20 H, Estimated GFR 46 L, Est GFR ( Amer) 55 L, Glucose 178 H, Calcium 8.4, Total Bilirubin 0.6, AST 23, ALT 21, Alkaline Phosphatase 102, Troponin I 0.03, Total Protein 6.9, Albumin 4.0, Globulin 2.9, Albumin/Globulin Ratio 1.4 10/29/24 00:44: Lactate 2.0 10/29/24 01:49: Stool Occult Blood Positive A 10/29/24 02:43: Troponin I 0.03 10/29/24 05:51: WBC 22.5 H*, RBC 4.93, Hgb 14.8 D, Hct 42.8, MCV 86.8, MCH 30.0, MCHC 34.6, RDW 13.3, Plt Count 297, MPV 11.0 H, Neut % (Auto) 77.4, Lymph % (Auto) 12.6, [place] % (Auto) 8.8, Eos % (Auto) 0.2, Baso % (Auto) 0.4, Neut # (Auto) 17.4 H, Lymph # (Auto) 2.8, [place] # (Auto) 2.0 H, Eos # (Auto) 0.0, Baso # (Auto) 0.1 10/29/24 05:56: Troponin I 0.03 Assessment and Plan *Assessment and plan (1) Pancolitis: Status: Acute Category: Medical Code(s): K52.9 - Noninfective gastroenteritis and colitis, unspecified (2) Rectal bleeding: Status: Acute Category: Medical Code(s): K62.5 - Hemorrhage of anus and rectum (3) Lower abdominal pain: Status: Acute Category: Medical Code(s): R10.30 - Lower abdominal pain, unspecified Plan 1. Acute colitis. This certainly could represent acute self-limited colitis (microbial) or even ischemic colitis. The pattern on CT scan is more typical of bacterial colitis?especially Campylobacter which often involves ileocecal region. I would recommend PCR panel today and if positive will treat microbial pathogen. If PCR negative, would recommend that we do sigmoidoscopy or colonoscopy tomorrow. I would treat with antispasmodics and avoid broad spectrum antibiotics until we learn more. Continue hydration and clear liquids.
[2024-10-29 08:10] LABS: Potassium 2.6 mmoL/L (3.5-5.1)
[2024-10-29] MEDS: POTASSIUM CHLORIDE 20MEQ TAB 40 MEQ PO ×3 (08:28→16:46)
[2024-10-29] MEDS: POTASSIUM CHLORIDE 20MEQ TAB 20 MEQ PO ×3 (08:28→20:38)
[2024-10-29] MEDS: DICYCLOMINE 10MG CAPSULE 10 MG PO ×3 (08:28→20:39)
[2024-10-29] MEDS: VANCOMYCIN HCL 50MG/ML 150ML KIT 125 MG PO ×2 (08:46→13:16)
--- NOTE | 2024-10-29 08:58 | HMH.PHAINT1 ---
Pharmacy Intervention Comments: home medication list verified using list from outpatient pharmacy and pt interview
--- NOTE | 2024-10-29 09:07 | PC.NURSE ---
Pt. states she will not allow for glucose checks... 'I'm not diabetic.
[2024-10-29] MEDS: LEVOFLOXACIN/D5W 750 MG/150 ML 750 MG/150 ML PIGGYBACK 100 MG IV (09:29)
[2024-10-29 09:39] LABS: Adenovirus F 40/41, stool Not Detected (NotDetected); Astrovirus Not Detected (NotDetected); Campylobacter Not Detected (NotDetected); Clostridium Difficile A/B, PCR Not Detected (NotDetected); Cryptosporidium Not Detected (NotDetected); Cyclospora Cayetanesis Not Detected (NotDetected); Entamoeba histolytica Not Detected (NotDetected); Enteroaggregative E coli Not Detected (NotDetected); Enteropathogenic E coli Not Detected (NotDetected); Enterotoxigenic E coli Not Detected (NotDetected); Giardia lamblia Not Detected (NotDetected); Norovirus Not Detected (NotDetected); Plesimonas Shigalloides, PCR Not Detected (NotDetected); Rotavirus A Not Detected (NotDetected); Salmonella, PCR Not Detected (NotDetected); Sapovirus Not Detected (NotDetected); Shigella Enterovasive E coli Not Detected (NotDetected); Vibrio Cholerae Not Detected (NotDetected); Vibrio, PCR Not Detected (NotDetected); Yersinia Entercolitica, PCR Not Detected (NotDetected)
[2024-10-29] MEDS: 0.9 % SODIUM CHLORIDE 1000ML 1,000 ML 200 ML IV (11:30)
[2024-10-29] MEDS: VENLAFAXINE XR 75MG CAPSULE 75 MG PO ×2 (11:36→20:39)
[2024-10-29] MEDS: OXYCODONE 7.5MG W/APAP 325MG TABLET 1 EACH PO (13:15)
[2024-10-29 14:17] LABS: Chloride 98 mmol/L (98-107); Sodium 128 mmol/L (136-145)
[2024-10-29 14:20] LABS: Blood Urea Nitrogen 11 mg/dl (7-17); Calcium 7.9 mg/dl (8.4-10.2); Creatinine Clearance Estimated 91 mL/min (50-200); Estimated Glomerular Filt Rate 51 ml/min (>60); GFR (African American) 61 ML/MIN (>60); Glucose 165 mg/dl (74-100)
[2024-10-29 14:21] LABS: Potassium 2.8 mmoL/L (3.5-5.1)
[2024-10-29 14:34] LABS: Anion Gap 4.8 mEq/L (5-15); Carbon Dioxide 28 mmol/L (22.0-30.0)
--- NOTE | 2024-10-29 14:43 | PC.NURSE ---
Aox 4, up with assistance times one, on RA, fsbg refuses, 20g R AC SL, 20g r w sl, consult to GI, on full liquids, pain meds given twice this shift.
[2024-10-29 14:49] LABS: Shiga-like toxin E coli Detected (NotDetected)
[2024-10-29] MEDS: LACTATED RINGERS 1000ML 1,000 ML 125 ML IV (18:06)
[2024-10-29] MEDS: METOPROLOL TARTRATE 25MG TABLET 25 MG PO (20:39)
[2024-10-29 22:28] LABS: Anion Gap 4.1 mEq/L (5-15); Blood Urea Nitrogen 9 mg/dl (7-17); Calcium 7.9 mg/dl (8.4-10.2); Carbon Dioxide 27 mmol/L (22.0-30.0); Chloride 102 mmol/L (98-107); Creatinine Clearance Estimated 111 mL/min (50-200); Estimated Glomerular Filt Rate 64 ml/min (>60); GFR (African American) 77 ML/MIN (>60); Glucose 141 mg/dl (74-100); Potassium 3.1 mmoL/L (3.5-5.1); Sodium 130 mmol/L (136-145)
[2024-10-30] MEDS: LACTATED RINGERS 1000ML 1,000 ML 125 ML IV (01:46)
[2024-10-30] MEDS: PROMETHAZINE HCL 25MG/ML 1ML VIAL 25 MG IV ×3 (01:49→17:38)
[2024-10-30] MEDS: OXYCODONE 7.5MG W/APAP 325MG TABLET 1 EACH PO ×3 (02:44→22:02)
[2024-10-30 04:00] VITALS: BP 124/64; PULSE 94; RESP 16; TEMP 36.9; O2SAT 93; BMI 39.7
--- NOTE | 2024-10-30 05:47 | PC.NURSE ---
Pt A&OX4 and has tolerated room air. Lung sounds clear and bowel sounds active. She has complained of abdominal pain and nausea multiple times and has been medicated per MAR. LR has been infusing at 125ml/hr. She has ambulated with x1 assist. No complaints at this time, call light within reach.
[2024-10-30 06:10] LABS: Basophils # 0.1 K/mm3 (0-0.2); Basophils % 0.4 % (0.1-2.0); Eosinophils # 0.1 Kmm3 (0.0-0.4); Eosinophils % 0.7 % (0.1-12.0); Hematocrit 36.9 % (37.0-47.0); Lymphocytes # 2.6 K/mm3 (0.7-4.5); Lymphocytes % 13.6 % (10-50); Mean Corpuscular HGB Conc 34.4 g/dL (31.8-35.4); Mean Corpuscular Hemoglobin 30.2 pg (27.0-31.2); Mean Corpuscular Volume 87.6 fl (81-99); Mean Platelet Volume 10.7 fl (7.4-10.4); Monocytes # 1.7 K/mm3 (0.1-1.0); Monocytes % 8.9 % (1.7-9.3); Neutrophils # 14.6 K/mm3 (1.8-7.8); Neutrophils % 75.5 % (37.0-80.0); Nucleated Red Blood Cells # 0 10^3/uL; Nucleated Red Blood Cells % 0 %; Platelet Count 269 K/mm3 (142-424); Red Blood Count 4.21 M/mm3 (4.20-5.40); Red Cell Distribution Width 13.5 % (11.5-17.5); Red Cell Distribution Width-SD 43.4 fL; White Blood Count 19.4 K/mm3 (4.8-10.8)
[2024-10-30 06:12] LABS: MANUAL DIFFERENTIAL MANUAL DIFFERENTIAL (MANUAL DIFF)
[2024-10-30 06:21] LABS: Alanine Aminotransferase 12 U/L (12-78); Albumin Level 2.7 g/dl (3.5-5.0); Albumin/Globulin Ratio 1.1 (1.1-1.8); Alkaline Phosphatase 72 U/L (38-126); Anion Gap 3.2 mEq/L (5-15); Aspartate Amino Transferase 18 U/L (14-36); Bilirubin,Total 0.4 mg/dl (0.2-1.3); Blood Urea Nitrogen 7 mg/dl (7-17); Calcium 8.1 mg/dl (8.4-10.2); Carbon Dioxide 27 mmol/L (22.0-30.0); Chloride 104 mmol/L (98-107); Creatinine Clearance Estimated 111 mL/min (50-200); Estimated Glomerular Filt Rate 64 ml/min (>60); GFR (African American) 77 ML/MIN (>60); Globulin 2.5 g/dL (1.3-3.2); Glucose 111 mg/dl (74-100); Magnesium 2.1 mg/dl (1.6-2.3); Potassium 3.2 mmoL/L (3.5-5.1); Sodium 131 mmol/L (136-145); Total Protein,Serum 5.2 g/dl (6.3-8.2)
[2024-10-30 06:26] LABS: Lymphocytes % 11 % (10-50); Monocytes % 5 % (2-9); Neutrophils % 84 % (42-76); Total Cells Counted 100
[2024-10-30] MEDS: LEVOTHYROXINE 75MCG (0.075MG) TAB 75 MCG PO (06:27)
[2024-10-30 06:36] LABS: Hemoglobin 12.6 g/dL (12.2-16.2)
--- NOTE | 2024-10-30 07:26 | P.PN_ITS ---
Subjective *Date: 10/30/24 *Time: 07:26 Interval history: Patient improving. Exam Data for Last 24 hours Vital signs and Labs for Last 24 Hours: Temp Pulse Resp BP Pulse Ox O2 Del Method 98.5 F 94 H 16 124/64 93 L Room Air 10/30/24 04:00 10/30/24 04:00 10/30/24 04:00 10/30/24 04:00 10/30/24 04:00 10/30/24 06:47 Laboratory Results - last 24 hr 10/29/24 05:51: Sodium 127 L, Potassium 2.6 L*, Chloride 97 L, Carbon Dioxide 23, Anion Gap 9.6, BUN 14, Creatinine 1.10 H, Estimated Creat Clear 91, Estimated GFR 51 L, Est GFR ( Amer) 61, Glucose 141 H D, Calcium 8.0 L, Phosphorus 2.4 L, Magnesium 1.9, Total Bilirubin 0.5, AST 29 D, ALT 14 D, Alkaline Phosphatase 91, Total Protein 5.9 L, Albumin 3.1 L D, Globulin 2.8, Albumin/Globulin Ratio 1.1 10/29/24 09:25: Stl Aeromonas (PCR) Not detected, Stl C. cayetanensis PCR Not detected, Stool Rotavirus (PCR) Not detected, Stl Adenov F 40/41 PCR Not detected, Stool Astrovirus (PCR) Not detected, Stool Campylobacter PCR Not detected, Stl C.difficile Tox PCR Not detected, Stool Cryptosporidium PCR Not detected, Stl E.coli Shiga Tox PCR Detected A, Stool E coli O157 PCR Detected A, Stl Enterotoxigenic E PCR Not detected, Stool EPEC (PCR) Not detected, Stool EAEC (PCR) Not detected, Stl E. histolytica PCR Not detected, Stool Giardia Lamblia PCR Not detected, Stool Salmonella PCR Not detected, Stool Sapovirus (PCR) Not detected, Stl P. shigelloides PCR Not detected, Stl Shigella/EIEC PCR Not detected, St Y.enterocolitica PCR Not detected, Stool Vibrio (PCR) Not detected, Stl Vibrio cholerae PCR Not detected, Stl Norovirus GI/GII PCR Not detected 10/29/24 14:05: Sodium 128 L, Potassium 2.8 L*, Chloride 98, Carbon Dioxide 28, Anion Gap 4.8 L, BUN 11, Creatinine 1.10 H, Estimated Creat Clear 91, Estimated GFR 51 L, Est GFR ( Amer) 61, Glucose 165 H, Calcium 7.9 L 10/29/24 20:11: Sodium 130 L, Potassium 3.1 L, Chloride 102, Carbon Dioxide 27, Anion Gap 4.1 L, BUN 9, Creatinine 0.90, Estimated Creat Clear 111, Estimated GFR 64, Est GFR ( Amer) 77 D, Glucose 141 H, Calcium 7.9 L 10/30/24 05:47: WBC 19.4 H, RBC 4.21, Hgb 12.6 D, Hct 36.9 L, MCV 87.6, MCH 30.2, MCHC 34.4, RDW 13.5, Plt Count 269, MPV 10.7 H, Neut % (Auto) 75.5, Lymph % (Auto) 13.6, [place] % (Auto) 8.9, Eos % (Auto) 0.7, Baso % (Auto) 0.4, Neut # (Auto) 14.6 H, Lymph # (Auto) 2.6, [place] # (Auto) 1.7 H, Eos # (Auto) 0.1, Baso # (Auto) 0.1, Total Counted 100, Neutrophils % (Manual) 84 H, Lymphocytes % (Manual) 11, Monocytes % (Manual) 5, Sodium 131 L, Potassium 3.2 L, Chloride 104, Carbon Dioxide 27, Anion Gap 3.2 L, BUN 7, Creatinine 0.90, Estimated Creat Clear 111, Estimated GFR 64, Est GFR ( Amer) 77, Glucose 111 H D, Calcium 8.1 L, Magnesium 2.1 D, Total Bilirubin 0.4, AST 18 D, ALT 12, Alkaline Phosphatase 72, Total Protein 5.2 L, Albumin 2.7 L D, Globulin 2.5, Albumin/Globulin Ratio 1.1 I & O for Last 24 hours: Intake & Output 10/27/24 10/28/24 10/29/24 10/30/24 23:59 23:59 23:59 23:59 Intake Total 1790 / 2590 800 / 800 Output Total 0 / 0 0 / 0 Balance 1790 / 2590 800 / 800 Weight 228 lb 233 lb 9.6 oz 233 lb Microbiology Reports for the Last 24 Hours: Microbiology 10/29/24 02:00 Blood Blood Culture - Preliminary NO GROWTH AFTER 24 HOURS 10/29/24 02:07 Blood Blood Culture - Preliminary NO GROWTH AFTER 24 HOURS Assessment and Plan *Assessment and plan (1) 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 E. coli 0157 enterocolitis. Rehydration is most important and clinical monitoring of labs. We do not treat confirmed Shiga toxin producing E. coli infection with antibiotics because of the risk of development of hemolytic uremic syndrome. I would also avoid antimotility agents including Lomotil and avoid NSAIDs(Can diminish kidney blood flow) . Given HUS and this subset we also feel that it is prudent to avoid potentially arrhythmogenic agents including Zofran. Patient's creatinine actually improved today at 0.90 and serum albumin lower at 2.7. In persons with hypoalbuminemia (less than 3.0) with peripheral edema or diminishing urine output, it is warranted to infuse albumin.
[2024-10-30 08:00] VITALS: BP 160/90; PULSE 90; RESP 16; TEMP 36.8; O2SAT 96
[2024-10-30] MEDS: DICYCLOMINE 10MG CAPSULE 10 MG PO ×3 (08:07→20:50)
[2024-10-30] MEDS: VENLAFAXINE XR 75MG CAPSULE 75 MG PO ×2 (08:07→20:50)
[2024-10-30] MEDS: POTASSIUM CHLORIDE 20MEQ TAB 20 MEQ PO ×2 (08:07→20:50)
[2024-10-30] MEDS: METOPROLOL TARTRATE 25MG TABLET 25 MG PO ×2 (08:07→20:50)
[2024-10-30] MEDS: POTASSIUM CHLORIDE 20MEQ TAB 40 MEQ PO ×2 (08:08→11:02)
[2024-10-30] MEDS: SODIUM CHLORIDE 0.9% 25ML BAG 25 ML IV ×2 (08:10→17:39)
--- NOTE | 2024-10-30 10:53 | P.PN_ITS ---
Subjective *Date: 10/30/24 *Time: 16:21 Interval history: Patient still having abdominal pain but feeling little better today open to trying liquids. Bowel movements approximately 6 in the past 24 hours. White count marginally better. Denies any fevers. No nausea or vomiting. Medical Exam Vital signs and Labs for Last 24 Hours: Vital Signs Temp Pulse Resp BP Pulse Ox O2 Del Method 10/30/24 09:00 Room Air 10/30/24 08:00 98.2 F 90 16 160/90 H 96 Room Air 10/30/24 08:00 Room Air 10/30/24 06:47 Room Air 10/30/24 05:00 Room Air 10/30/24 04:00 98.5 F 94 H 16 124/64 93 L Room Air 10/30/24 03:00 Room Air 10/30/24 01:00 Room Air 10/29/24 23:44 98.8 F 86 16 140/68 97 Room Air 10/29/24 23:00 Room Air 10/29/24 21:00 Room Air 10/29/24 20:00 Room Air 10/29/24 19:24 98.5 F 89 16 132/87 97 Room Air 10/29/24 17:12 Room Air 10/29/24 16:35 Room Air 10/29/24 16:00 97.7 F 103 H 18 148/93 H 100 Room Air 10/29/24 14:06 Room Air 10/29/24 12:00 97.8 F 118 H 18 161/90 H 98 Room Air Intake and Output 10/29/24 10/30/24 10/30/24 23:59 07:59 15:59 Intake Total 270 / 2590 800 / 900 100 / 900 Output Total 0 / 0 0 / 0 0 / 0 Balance 270 / 2590 800 / 900 100 / 900 Intake: Intake, Oral Amount 270 / 540 100 / 100 Intake, Total IV Amount 800 / 800 Lactated Ringers 1000ML 1,000 800 / 800 ml @ 125 mls/hr IV .Q8H [facility] Rx# :[id number] Output: Output, Urine Amount 0 / 0 0 / 0 0 / 0 Other: Number of Unmeasured Voids 1 1 1 Number of Bowel Movements 1 1 1 Weight 105.687 kg Patient Weight 10/30/24 23:59 Weight 105.687 kg Laboratory Results - last 24 hr 10/29/24 09:25: Stl Aeromonas (PCR) Not detected, Stl C. cayetanensis PCR Not detected, Stool Rotavirus (PCR) Not detected, Stl Adenov F 40/41 PCR Not detected, Stool Astrovirus (PCR) Not detected, Stool Campylobacter PCR Not detected, Stl C.difficile Tox PCR Not detected, Stool Cryptosporidium PCR Not detected, Stl E.coli Shiga Tox PCR Detected A, Stool E coli O157 PCR Detected A, Stl Enterotoxigenic E PCR Not detected, Stool EPEC (PCR) Not detected, Stool EAEC (PCR) Not detected, Stl E. histolytica PCR Not detected, Stool Giardia Lamblia PCR Not detected, Stool Salmonella PCR Not detected, Stool Sapovirus (PCR) Not detected, Stl P. shigelloides PCR Not detected, Stl Shigella/EIEC PCR Not detected, St Y.enterocolitica PCR Not detected, Stool Vibrio (PCR) Not detected, Stl Vibrio cholerae PCR Not detected, Stl Norovirus GI/GII PCR Not detected 10/29/24 14:05: Sodium 128 L, Potassium 2.8 L*, Chloride 98, Carbon Dioxide 28, Anion Gap 4.8 L, BUN 11, Creatinine 1.10 H, Estimated Creat Clear 91, Estimated GFR 51 L, Est GFR ( Amer) 61, Glucose 165 H, Calcium 7.9 L 10/29/24 20:11: Sodium 130 L, Potassium 3.1 L, Chloride 102, Carbon Dioxide 27, Anion Gap 4.1 L, BUN 9, Creatinine 0.90, Estimated Creat Clear 111, Estimated GFR 64, Est GFR ( Amer) 77 D, Glucose 141 H, Calcium 7.9 L 10/30/24 05:47: WBC 19.4 H, RBC 4.21, Hgb 12.6 D, Hct 36.9 L, MCV 87.6, MCH 30.2, MCHC 34.4, RDW 13.5, Plt Count 269, MPV 10.7 H, Neut % (Auto) 75.5, Lymph % (Auto) 13.6, [place] % (Auto) 8.9, Eos % (Auto) 0.7, Baso % (Auto) 0.4, Neut # (Auto) 14.6 H, Lymph # (Auto) 2.6, [place] # (Auto) 1.7 H, Eos # (Auto) 0.1, Baso # (Auto) 0.1, Total Counted 100, Neutrophils % (Manual) 84 H, Lymphocytes % (Manual) 11, Monocytes % (Manual) 5, Sodium 131 L, Potassium 3.2 L, Chloride 104, Carbon Dioxide 27, Anion Gap 3.2 L, BUN 7, Creatinine 0.90, Estimated Creat Clear 111, Estimated GFR 64, Est GFR ( Amer) 77, Glucose 111 H D, Calcium 8.1 L, Magnesium 2.1 D, Total Bilirubin 0.4, AST 18 D, ALT 12, Alkaline Phosphatase 72, Total Protein 5.2 L, Albumin 2.7 L D, Globulin 2.5, Albumin/Globulin Ratio 1.1 I & O for Labs for Last 24 Hours: Intake & Output 10/27/24 10/28/24 10/29/24 10/30/24 23:59 23:59 23:59 23:59 Intake Total 1790 / 2590 900 / 900 Output Total 0 / 0 0 / 0 Balance 1790 / 2590 900 / 900 Weight 103.419 kg 105.959 kg 105.687 kg Microbiology Reports for the Last 24 Hours: Microbiology 10/29/24 02:00 Blood Blood Culture - Preliminary NO GROWTH AFTER 24 HOURS 10/29/24 02:07 Blood Blood Culture - Preliminary NO GROWTH AFTER 24 HOURS Constitutional: Present no acute distress, obese and cooperative Head: Present atraumatic and normocephalic Respiratory: Present normal respiratory effort; Absent rhonchi, wheezes or crackles Cardiac: Present Reg Rate and Rhythm GI: Present soft, tenderness (Diffuse, nonfocal) and normal bowel sounds; Absent distention, guarding or rebound Extremities: Present normal inspection and full ROM Skin: Present intact; Absent erythema Neuro: Present Grossly Intact, alert, awake, oriented x 3 and moves all extremities Assessment and Plan *Assessment and plan (1) Diarrhea: Status: Acute Category: Medical Code(s): R19.7 - Diarrhea, unspecified (2) Hypokalemia: Status: Acute Category: Medical Code(s): E87.6 - Hypokalemia (3) Pancolitis: Status: Acute Category: Medical Code(s): K52.9 - Noninfective gastroenteritis and colitis, unspecified (4) 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 Found to be positive for E. coli 0157. Antibiotics discontinued. GI continues to assist with care. Continues to require inpatient management. Problems addressed as follows: Pancolitis E. coli 0157 infection -Discontinued IV antibiotics. Contraindicated due to risk for HUS/TTP -Continue supportive management, LR at 75 cc/h. -Platelets normal at 269. White count improving at 19.4, down from 26. Hemoglobin 12.6. Kidney function normal with BUN 7, creatinine 0.9. Close monitoring of electrolytes. Hyponatremia/hypokalemia -Sodium 131, potassium 3.2. Replacing per protocol. Monitoring every 12 hours along with kidney function due to risk for HUS TTP above -CMP ordered for this afternoon, CBC, CMP, magnesium ordered for the morning. CKD - Reportedly stage III per patient, unknown creatinine baseline; kidney function normal today. Monitoring closely every 12 hour Holding DVT prophylaxis due to bleeding Full liquid diet Full code
[2024-10-30] MEDS: LACTATED RINGERS 1000ML 1,000 ML 75 ML IV (11:02)
[2024-10-30 12:00] VITALS: BP 120/62; PULSE 87; RESP 16; TEMP 36.7; O2SAT 96
[2024-10-30 16:00] VITALS: BP 139/95; PULSE 102; RESP 18; TEMP 36.8; O2SAT 92
--- NOTE | 2024-10-30 16:45 | PC.NURSE ---
Pt is A&Ox4. Vital signs stable tolerating room air. Contact precautions in place. Pt complains of nausea and abdominal pain. Treated with PRN medications per AUG. Potassium replaced per protocol. Pt resting comfortably supine in bed with no further complaints voiced at this time. Call light within reach.
[2024-10-30 17:55] LABS: Anion Gap 4.7 mEq/L (5-15); Blood Urea Nitrogen 6 mg/dl (7-17); Calcium 8.6 mg/dl (8.4-10.2); Carbon Dioxide 24 mmol/L (22.0-30.0); Chloride 107 mmol/L (98-107); Creatinine Clearance Estimated 125 mL/min (50-200); Estimated Glomerular Filt Rate 73 ml/min (>60); GFR (African American) 89 ML/MIN (>60); Glucose 126 mg/dl (74-100); Potassium 3.7 mmoL/L (3.5-5.1); Sodium 132 mmol/L (136-145)
[2024-10-30 20:00] VITALS: BP 128/77; PULSE 84; RESP 14; TEMP 36.8; O2SAT 97
[2024-10-30] MEDS: MELATONIN 5MG TABLET 5 MG PO (20:50)
[2024-10-31] VITALS: BP 129/87; PULSE 81; RESP 22; TEMP 36.8; O2SAT 93
[2024-10-31] MEDS: LACTATED RINGERS 1000ML 1,000 ML 75 ML IV (00:49)
[2024-10-31 04:00] VITALS: BP 121/68; PULSE 87; RESP 20; TEMP 36.9; O2SAT 94; BMI 42.8
[2024-10-31] MEDS: PROMETHAZINE HCL 25MG/ML 1ML VIAL 25 MG IV (04:58)
[2024-10-31] MEDS: LEVOTHYROXINE 75MCG (0.075MG) TAB 75 MCG PO (06:10)
--- NOTE | 2024-10-31 06:23 | PC.NURSE ---
Pt A&OX4 and has tolerated room air. Lung sounds clear and bowel sounds active. She has complained of nausea once and was medicated per MAR. She has remained of contact precautions. No complaints at this time, call light within reach.
[2024-10-31 07:04] LABS: Basophils # 0.1 K/mm3 (0-0.2); Basophils % 0.5 % (0.1-2.0); Eosinophils # 0.3 Kmm3 (0.0-0.4); Eosinophils % 1.6 % (0.1-12.0); Hematocrit 36.9 % (37.0-47.0); Hemoglobin 12.3 g/dL (12.2-16.2); Lymphocytes # 2.7 K/mm3 (0.7-4.5); Lymphocytes % 14.1 % (10-50); Mean Corpuscular HGB Conc 33.3 g/dL (31.8-35.4); Mean Corpuscular Hemoglobin 29.8 pg (27.0-31.2); Mean Corpuscular Volume 89.3 fl (81-99); Mean Platelet Volume 10.7 fl (7.4-10.4); Monocytes # 1.4 K/mm3 (0.1-1.0); Monocytes % 7.3 % (1.7-9.3); Neutrophils # 14.3 K/mm3 (1.8-7.8); Neutrophils % 75.6 % (37.0-80.0); Nucleated Red Blood Cells # 0 10^3/uL; Nucleated Red Blood Cells % 0 %; Platelet Count 312 K/mm3 (142-424); Red Blood Count 4.13 M/mm3 (4.20-5.40)
[2024-10-31 07:33] LABS: Alanine Aminotransferase 12 U/L (12-78); Alkaline Phosphatase 76 U/L (38-126); Aspartate Amino Transferase 17 U/L (14-36); Bilirubin,Total 0.4 mg/dl (0.2-1.3); Blood Urea Nitrogen 5 mg/dl (7-17); Calcium 8.3 mg/dl (8.4-10.2); Chloride 108 mmol/L (98-107); Creatinine Clearance Estimated 65 mL/min (50-200); Estimated Glomerular Filt Rate 73 ml/min (>60); GFR (African American) 89 ML/MIN (>60); Glucose 98 mg/dl (74-100); Potassium 3.4 mmoL/L (3.5-5.1); Sodium 136 mmol/L (136-145)
[2024-10-31 07:34] LABS: Albumin Level 2.9 g/dl (3.5-5.0); Albumin/Globulin Ratio 1.1 (1.1-1.8); Anion Gap 5.4 mEq/L (5-15); Carbon Dioxide 26 mmol/L (22.0-30.0); Globulin 2.7 g/dL (1.3-3.2); Total Protein,Serum 5.6 g/dl (6.3-8.2)
[2024-10-31 07:51] LABS: Magnesium 2.1 mg/dl (1.6-2.3)
[2024-10-31 08:00] VITALS: BP 126/61; PULSE 97; RESP 17; TEMP 36.8; O2SAT 97
[2024-10-31 08:17] LABS: Calprotectin, Fecal 539 ug/g (0-120)
[2024-10-31] MEDS: KCl 10mEq/100ml 100 ML 100 MEQ IV ×6 (08:47→16:09)
[2024-10-31] MEDS: DICYCLOMINE 10MG CAPSULE 10 MG PO ×3 (08:48→20:53)
[2024-10-31] MEDS: POTASSIUM CHLORIDE 20MEQ TAB 20 MEQ PO ×2 (08:48→20:53)
[2024-10-31] MEDS: VENLAFAXINE XR 75MG CAPSULE 75 MG PO ×2 (08:48→20:53)
[2024-10-31] MEDS: METOPROLOL TARTRATE 25MG TABLET 25 MG PO (08:48)
[2024-10-31] MEDS: OXYCODONE 7.5MG W/APAP 325MG TABLET 1 EACH PO ×2 (08:49→16:11)
--- NOTE | 2024-10-31 13:44 | EXP.ACUTE.PN ---
Subjective *Date: 10/31/24 *Time: 13:44 Interval history: Diarrhea improving, 4 bowel movements yesterday, stool starting to transition from watery to little bit more substance. Denies nausea or vomiting. Tolerating p.o. intake. Belly pain improving. White count remains elevated. Kidney function stable. Voiding independently. Good urine output. Afebrile overnight Medical Exam Vital signs and Labs for Last 24 Hours: Vital Signs Temp Pulse Resp BP Pulse Ox O2 Del Method 10/31/24 11:00 Room Air 10/31/24 09:00 Room Air 10/31/24 08:00 Room Air 10/31/24 08:00 98.2 F 97 H 17 126/61 97 Room Air 10/31/24 06:44 Room Air 10/31/24 05:00 Room Air 10/31/24 04:00 98.4 F 87 20 121/68 94 L Room Air 10/31/24 03:00 Room Air 10/31/24 01:00 Room Air 10/31/24 00:00 98.2 F 81 22 129/87 93 L Room Air 10/30/24 23:00 Room Air 10/30/24 21:00 Room Air 10/30/24 20:00 Room Air 10/30/24 20:00 98.3 F 84 14 128/77 97 10/30/24 18:46 Room Air 10/30/24 17:00 Room Air 10/30/24 16:00 98.3 F 102 H 18 139/95 H 92 L Room Air 10/30/24 15:00 Room Air Intake and Output 10/30/24 10/31/24 10/31/24 23:59 07:59 15:59 Intake Total 240 / 2380 1000 / 1400 400 / 1400 Output Total 0 / 0 0 / 0 Balance 240 / 2380 1000 / 1400 400 / 1400 Intake: Intake, Oral Amount 240 / 580 400 / 400 Intake, Total IV Amount 1000 / 1000 Lactated Ringers 1000ML 1,000 1000 / 1000 ml @ 75 mls/hr IV .[id number] [facility] Rx#:[id number] Output: Output, Urine Amount 0 / 0 0 / 0 Other: Number of Unmeasured Voids 1 1 Number of Bowel Movements 1 Weight 113.908 kg Patient Weight 10/31/24 23:59 Weight 113.908 kg Laboratory Results - last 24 hr 10/29/24 09:25: Stool Calprotectin 539 H 10/30/24 17:35: Sodium 132 L, Potassium 3.7, Chloride 107, Carbon Dioxide 24, Anion Gap 4.7 L, BUN 6 L, Creatinine 0.80, Estimated Creat Clear 125, Estimated GFR 73, Est GFR ( Amer) 89, Glucose 126 H, Calcium 8.6 10/31/24 06:40: WBC 19.0 H, RBC 4.13 L, Hgb 12.3, Hct 36.9 L, MCV 89.3, MCH 29.8, MCHC 33.3, RDW 14.0, Plt Count 312, MPV 10.7 H, Neut % (Auto) 75.6, Lymph % (Auto) 14.1, [place] % (Auto) 7.3, Eos % (Auto) 1.6, Baso % (Auto) 0.5, Neut # (Auto) 14.3 H, Lymph # (Auto) 2.7, [place] # (Auto) 1.4 H, Eos # (Auto) 0.3, Baso # (Auto) 0.1, Sodium 136, Potassium 3.4 L, Chloride 108 H, Carbon Dioxide 26, Anion Gap 5.4, BUN 5 L, Creatinine 0.80, Estimated Creat Clear 65, Estimated GFR 73, Est GFR ( Amer) 89, Glucose 98 D, Calcium 8.3 L, Magnesium 2.1, Total Bilirubin 0.4, AST 17, ALT 12, Alkaline Phosphatase 76, Total Protein 5.6 L, Albumin 2.9 L, Globulin 2.7, Albumin/Globulin Ratio 1.1 I & O for Labs for Last 24 Hours: Intake & Output 10/28/24 10/29/24 10/30/24 10/31/24 23:59 23:59 23:59 23:59 Intake Total 1790 / 2590 1380 / 2380 1400 / 1400 Output Total 0 / 0 0 / 0 0 / 0 Balance 1790 / 2590 1380 / 2380 1400 / 1400 Weight 103.419 kg 105.959 kg 105.687 kg 113.908 kg Microbiology Reports for the Last 24 Hours: Microbiology 10/29/24 02:00 Blood Blood Culture - Preliminary NO GROWTH AFTER 48 HOURS 10/29/24 02:07 Blood Blood Culture - Preliminary NO GROWTH AFTER 48 HOURS Constitutional: Present no acute distress, obese and cooperative Head: Present atraumatic and normocephalic Respiratory: Present normal respiratory effort; Absent rhonchi, wheezes or crackles Cardiac: Present Reg Rate and Rhythm GI: Present soft, tenderness (Minimal, significant improvement) and normal bowel sounds; Absent distention, guarding or rebound Extremities: Present normal inspection and full ROM Skin: Present intact; Absent erythema Neuro: Present Grossly Intact, alert, awake, oriented x 3 and moves all extremities Assessment and Plan *Assessment and plan (1) Diarrhea: Status: Acute Category: Medical Code(s): R19.7 - Diarrhea, unspecified (2) Hypokalemia: Status: Acute Category: Medical Code(s): E87.6 - Hypokalemia (3) Pancolitis: Status: Acute Category: Medical Code(s): K52.9 - Noninfective gastroenteritis and colitis, unspecified (4) 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 Found to be positive for E. coli 0157. Tolerating p.o. intake, close monitoring of platelets, BUN, kidney function. Improving stool output. Anticipate discharge in the next day. Continues to require patient management. GI assisting with care. Problems addressed as follows: Pancolitis E. coli 0157 infection - Continue to avoid antibiotics due to contraindication with risk for HUS/TTP -Discontinue IV fluids, transition to oral intake today; monitor for 24 hours on just p.o. intake -Platelets normal at 312, BUN 5, creatinine 0.8. Potassium 3.4 with magnesium 2.1. Repeat CBC, CMP, magnesium ordered for the morning. Hyponatremia/hypokalemia - Resolving with sodium of 136, potassium 3.4; given stability over the past 24 hours, will transition to labs daily CKD - Reportedly stage III per patient, unknown creatinine baseline Holding DVT prophylaxis due to bleeding Full liquid diet Full code
[2024-10-31 16:00] VITALS: BP 119/67; PULSE 77; RESP 16; O2SAT 97
--- NOTE | 2024-10-31 17:22 | PC.NURSE ---
Pt is A&Ox4. Vitals signs stable tolerating room air. Potassium replaced per protocol. Pt complains of abdominal pain. PRN pain medication given per AUG. Pt's diet advanced to regular per MD. No complaints of nausea thus far. Pt resting comfortably in bed with no further needs voiced at this time. Call light within reach.
[2024-10-31 19:59] VITALS: BP 104/54; PULSE 88; RESP 22; TEMP 36.7; O2SAT 97
[2024-10-31] MEDS: MELATONIN 5MG TABLET 5 MG PO (20:53)
[2024-10-31] MEDS: TIZANIDINE 4MG TABLET 4 MG PO (20:54)
[2024-11-01] VITALS: BP 112/67; PULSE 84; RESP 16; TEMP 36.8; O2SAT 96
[2024-11-01 04:00] VITALS: BP 139/88; PULSE 89; RESP 16; TEMP 36.8; O2SAT 97; BMI 43.2
[2024-11-01] MEDS: PROMETHAZINE HCL 25MG/ML 1ML VIAL 25 MG IV (04:48)
[2024-11-01] MEDS: OXYCODONE 7.5MG W/APAP 325MG TABLET 1 EACH PO (04:48)
[2024-11-01] MEDS: SODIUM CHLORIDE 0.9% 25ML BAG 25 ML IV (04:48)
[2024-11-01] MEDS: LEVOTHYROXINE 75MCG (0.075MG) TAB 75 MCG PO (06:53)
[2024-11-01 07:57] LABS: Basophils # 0.1 K/mm3 (0-0.2); Basophils % 0.5 % (0.1-2.0); Eosinophils # 0.4 Kmm3 (0.0-0.4); Eosinophils % 2.3 % (0.1-12.0); Hematocrit 33.9 % (37.0-47.0); Hemoglobin 11.3 g/dL (12.2-16.2); Lymphocytes # 2.4 K/mm3 (0.7-4.5); Lymphocytes % 14.1 % (10-50); Mean Corpuscular HGB Conc 33.3 g/dL (31.8-35.4); Mean Corpuscular Hemoglobin 29.9 pg (27.0-31.2); Mean Corpuscular Volume 89.7 fl (81-99); Mean Platelet Volume 10.6 fl (7.4-10.4); Monocytes # 1.1 K/mm3 (0.1-1.0); Monocytes % 6.5 % (1.7-9.3); Neutrophils % 75.4 % (37.0-80.0); Nucleated Red Blood Cells # 0 10^3/uL; Nucleated Red Blood Cells % 0 %; Platelet Count 303 K/mm3 (142-424); Red Blood Count 3.78 M/mm3 (4.20-5.40); Red Cell Distribution Width 14.4 % (11.5-17.5); Red Cell Distribution Width-SD 47.2 fL; White Blood Count 17.3 K/mm3 (4.8-10.8)
[2024-11-01 08:00] VITALS: BP 135/73; PULSE 90; RESP 16; TEMP 36.8; O2SAT 95
[2024-11-01 08:32] LABS: Magnesium 1.9 mg/dl (1.6-2.3)
[2024-11-01 08:33] LABS: Alanine Aminotransferase 11 U/L (12-78); Albumin Level 2.5 g/dl (3.5-5.0); Albumin/Globulin Ratio 0.8 (1.1-1.8); Alkaline Phosphatase 80 U/L (38-126); Aspartate Amino Transferase 20 U/L (14-36); Bilirubin,Total 0.4 mg/dl (0.2-1.3); Blood Urea Nitrogen 6 mg/dl (7-17); Carbon Dioxide 26 mmol/L (22.0-30.0); Chloride 109 mmol/L (98-107); Creatinine Clearance Estimated 74 mL/min (50-200); Estimated Glomerular Filt Rate 85 ml/min (>60); GFR (African American) 103 ML/MIN (>60); Glucose 110 mg/dl (74-100); Sodium 134 mmol/L (136-145); Total Protein,Serum 5.5 g/dl (6.3-8.2)
[2024-11-01] MEDS: POTASSIUM CHLORIDE 20MEQ TAB 20 MEQ PO (09:03)
[2024-11-01] MEDS: DICYCLOMINE 10MG CAPSULE 10 MG PO ×2 (09:03→12:10)
[2024-11-01] MEDS: METOPROLOL TARTRATE 25MG TABLET 25 MG PO (09:03)
[2024-11-01] MEDS: VENLAFAXINE XR 75MG CAPSULE 75 MG PO (09:03)
--- NOTE | 2024-11-01 09:26 | EXP.DC.SUM ---
General Admission date:: 10/29/24 Discharge date: 11/01/24 HPI HPI HPI: Mrs. Naidu is a 58-year-old female who presented to the ED yesterday with diarrhea, abdominal pain and hematochezia/rectal bleeding with dark blood and clots. The patient states this all began about 5 or 6 days ago. She normally has constipation but then reverted to having diarrhea. She thought this may be related to her lupus but then she developed more abdominal pain 4 days ago. She has had a lot of gassiness and bloating. She had more intense cramps yesterday and came to the ED. In the ED, she had a CAT scan that showed severe pancolitis there was hyperdensity within the cecum and ileocecal region and distal ileum as well as an the descending and rectosigmoid region. This was felt to possibly be related to prior contrast. The patient did have a Anna-en-Y gastric bypass in 2021. She has had some long-term digestive issues and had been followed by [facility] in [facility]. The patient has had gradual weight loss since the bypass. She reports no mucus with her stools or family history of colon cancer. She does state that her last colonoscopy was approximately 5 years ago at [place] and she states that she would be due next year. Her father had multiple polyps (19 polyps on one colonoscopy). The patient has had several abdominal and pelvic surgeries (cholecystectomy, hysterectomy, 4 C-sections and left oophorectomy). She reports no fever. The patient's white blood cell count was 22,000 this morning. She is not anemic but her hemoglobin hematocrit declined from 16.9 and 48.0 down to 14.8 and 42.8. Her liver chemistries were normal. She does have stage III chronic kidney disease and her creatinine was 1.20. She is Hemoccult positive but PCR panel is not returned. Hospital Course Hospital Course Hospital Course: 58-year-old prior gastric bypass, admitted for Pancolitis. Found to be positive for E. coli 0157. Tolerating p.o. intake, close monitoring of platelets, BUN, kidney function. Improving stool output. Showed gradual improvement with conservative management and support. Antibiotics contraindicated. GI evaluated to assist with care. Stable at this time to discharge home with close follow-up as an outpatient. Problems addressed as follows: Pancolitis E. coli 0157 infection Hematochezia -Presented with bloody stools and severely elevated white count in the high 20s. Stool panel obtained. Was initiated on empiric antibiotics in the ED and continued for 24 hours while awaiting stool result. Returned positive for Shiga toxin producing E. coli as well as E. coli 157. Antibiotics discontinued immediately due to contraindication with risk for HUS/TTP. GI initially consulted out of concern for GI bleed given bloody stools but finding her positive for E. coli, decision made not to proceed with any intervention at this time. Continued IV fluids until tolerating p.o. intake. Serial labs monitoring kidney function, BUN, platelets. Patient remained stable with improvement in her stool. Decreased to less than 3 stools in 24 hours before discharge. Tolerating p.o. intake well. Kidney function remained normal, BUN 6, creatinine 0.7 on day of discharge. White count improved to 17. Electrolytes normalizing. Stable to discharge home with outpatient follow-up. Of note, states she had been [place] on [address] and around various animals, suspect this may have been her site of exposure. Hyponatremia/hypokalemia - Resolving with sodium of 134, potassium 4.0, magnesium 1.9. Would benefit from repeat labs at follow-up with PCP in the next 1 to 2-weeks. Holding HCTZ at discharge due to risk for worsening kidney function and electrolyte disturbances. CKD: Reportedly stage III per patient, unknown creatinine baseline. Remained normal. BUN 6, creatinine 0.7 on day of discharge. Exam Data for Last 24 hours Vital signs and Labs for Last 24 Hours: Temp Pulse Resp BP Pulse Ox O2 Del Method 98.2 F 90 16 135/73 95 Room Air 11/01/24 08:00 11/01/24 08:00 11/01/24 08:00 11/01/24 08:00 11/01/24 08:00 11/01/24 08:00 Laboratory Results - last 24 hr 11/01/24 07:15: WBC 17.3 H, RBC 3.78 L, Hgb 11.3 L, Hct 33.9 L, MCV 89.7, MCH 29.9, MCHC 33.3, RDW 14.4, Plt Count 303, MPV 10.6 H, Neut % (Auto) 75.4, Lymph % (Auto) 14.1, [place] % (Auto) 6.5, Eos % (Auto) 2.3, Baso % (Auto) 0.5, Neut # (Auto) 13.0 H, Lymph # (Auto) 2.4, [place] # (Auto) 1.1 H, Eos # (Auto) 0.4, Baso # (Auto) 0.1, Sodium 134 L, Potassium 4.0, Chloride 109 H, Carbon Dioxide 26, Anion Gap 3.0 L, BUN 6 L, Creatinine 0.70, Estimated Creat Clear 74, Estimated GFR 85, Est GFR ( Amer) 103, Glucose 110 H, Calcium 8.0 L, Magnesium 1.9, Total Bilirubin 0.4, AST 20, ALT 11 L, Alkaline Phosphatase 80, Total Protein 5.5 L, Albumin 2.5 L D, Globulin 3.0, Albumin/Globulin Ratio 0.8 L I & O for Last 24 hours: Intake & Output 10/29/24 10/30/24 10/31/24 11/01/24 23:59 23:59 23:59 23:59 Intake Total 1790 / 2590 1380 / 2380 1860 / 2100 930 / 930 Output Total 0 / 0 0 / 0 0 / 0 0 / 0 Balance 1790 / 2590 1380 / 2380 1860 / 2100 930 / 930 Weight 105.959 kg 105.687 kg 113.908 kg 114.759 kg Constitutional Constitutional: no acute distress, morbidly obese and cooperative *Routine HEENT Exam Head: Present normocephalic Eye: Present EOMI and PERRL ENT: Present mucous membranes moist *Routine Neck Exam Neck: Present supple; Absent lymphadenopathy *Routine Respiratory Exam Respiratory: Present CTA bilaterally; Absent rhonchi or wheezes *Routine Cardiovascular Exam Cardiovascular: Present RRR *Routine Abdominal Exam Abdominal: Present soft, normoactive bowel sounds and tenderness (interval improvement with near resolution); Absent distended *Routine Rectal Exam Patient deferred: visual exam *Routine Exam Patient deferred: external exam *Routine Extremities Exam Extremities: Absent cyanosis, clubbing or edema *Routine Skin Exam Skin: Present warm; Absent rash *Routine Neurological Exam Neurological: Present alert, oriented X3 and moving all extremities; Absent altered mental status Results Data Completed and Pending Labs on day of discharge: Labs from last 24 hours 11/01/24 07:15 WBC 17.3 H RBC 3.78 L Hgb 11.3 L Hct 33.9 L MCV 89.7 MCH 29.9 MCHC 33.3 RDW 14.4 Plt Count 303 MPV 10.6 H Neut % (Auto) 75.4 Lymph % (Auto) 14.1 [place] % (Auto) 6.5 Eos % (Auto) 2.3 Baso % (Auto) 0.5 Neut # (Auto) 13.0 H Lymph # (Auto) 2.4 [place] # (Auto) 1.1 H Eos # (Auto) 0.4 Baso # (Auto) 0.1 Sodium 134 L Potassium 4.0 Chloride 109 H Carbon Dioxide 26 Anion Gap 3.0 L BUN 6 L Creatinine 0.70 Estimated Creat Clear 74 Estimated GFR 85 Est GFR ( Amer) 103 Glucose 110 H Calcium 8.0 L Magnesium 1.9 Total Bilirubin 0.4 AST 20 ALT 11 L Alkaline Phosphatase 80 Total Protein 5.5 L Albumin 2.5 L D Globulin 3.0 Albumin/Globulin Ratio 0.8 L Preliminary micro results at discharge 10/29/24 02:00 Blood Culture - Preliminary Blood NO GROWTH AFTER 48 HOURS 10/29/24 02:07 Blood Culture - Preliminary Blood NO GROWTH AFTER 48 HOURS DS: Diagnosis Discharge Diagnosis (1) Diarrhea: Status: Acute Code(s): R19.7 - Diarrhea, unspecified (2) Hypokalemia: Status: Acute Code(s): E87.6 - Hypokalemia (3) Pancolitis: Status: Acute Code(s): K52.9 - Noninfective gastroenteritis and colitis, unspecified (4) 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: Status: Acute Code(s): A49.8 - Other bacterial infections of unspecified site (5) Rectal bleeding: Status: Acute Code(s): K62.5 - Hemorrhage of anus and rectum Meds Home Medications and Allergies Home Medications ?Medication ?Instructions ?Recorded ?Confirmed ?Type atorvastatin 40 mg tablet 40 mg PO DAILY 10/29/24 10/29/24 History cariprazine 1.5 mg capsule 1.5 mg PO DAILY 10/29/24 10/29/24 History (Vraylar) cetirizine 10 mg capsule (Zyrtec) 10 mg PO DAILY 10/29/24 10/29/24 History ergocalciferol (vitamin D2) 1,250 1,250 mcg PO WEEKLY 10/29/24 10/29/24 History mcg (50,000 unit) capsule estradiol 0.01% (0.1 mg/gram) 1 appful vaginal DAILY 10/29/24 10/29/24 History vaginal cream hydrochlorothiazide 25 mg tablet 25 mg PO DAILY 10/29/24 10/29/24 History hydroxyzine HCl 25 mg tablet 25 mg PO DAILYP PRN Itching 10/29/24 10/29/24 History levothyroxine 75 mcg tablet 75 mcg PO DAILY 10/29/24 10/29/24 History (Synthroid) metoprolol tartrate 25 mg tablet 25 mg PO BID 10/29/24 10/29/24 History omeprazole 40 mg capsule,delayed 40 mg PO BID 10/29/24 10/29/24 History release oxycodone-acetaminophen 7.5 mg-325 1 tab PO TIDP PRN Pain, Moderate 10/29/24 10/29/24 History mg tablet (Percocet) potassium chloride 10 mEq 20 meq PO BID 10/29/24 10/29/24 History capsule,extended release spironolactone 25 mg tablet 25 mg PO DAILY 10/29/24 10/29/24 History (Aldactone) sumatriptan succinate 50 mg tablet 50 mg PO DAILYP PRN Migraine 10/29/24 10/29/24 History (Imitrex) headaches thiamine HCl (vitamin B1) 100 mg 100 mg PO DAILY 10/29/24 10/29/24 History tablet tizanidine 4 mg capsule (Zanaflex) 4 mg PO TIDP PRN muscle spasms 10/29/24 10/29/24 History topiramate 100 mg tablet (Topamax) 100 mg PO BID 10/29/24 10/29/24 History venlafaxine 75 mg capsule,extended 75 mg PO BID 10/29/24 10/29/24 History release 24 hr (Effexor XR) New Prescriptions to Start Prescriptions: Allergies Allergy/AdvReac Type Severity Reaction Status Date / Time escitalopram (From Lexapro) Allergy Unknown Verified 10/28/24 23:59 allergy reaction Discharge Plan Disposition Patient Disposition: Home, Self-Care Condition: Fair Discharge Order Discharge Orders: Discharge Order (Routine); Ordered 11/01/24 Ordered By: Doroteo Majano Follow up Plan Follow up with: Clara Jeffries APRN [Nurse Practitioner] - 12/04/24 9:30 am Navi Lunsford DO [Primary Care Provider] - 11/04/24 3:00 pm Prescriptions/Medication Reconciliation: Continued atorvastatin 40 mg Tablet 40 mg PO DAILY ergocalciferol (vitamin D2) 1,250 mcg (50,000 unit) Capsule 1,250 mcg PO WEEKLY estradiol 0.01 % (0.1 mg/gram) Cream 1 appful VAGINAL DAILY Rx Instructions: for 14 days Zyrtec 10 mg Capsule 10 mg PO DAILY Vraylar 1.5 mg Capsule 1.5 mg PO DAILY potassium chloride 10 mEq Capsule, Extended Release 20 meq PO BID levothyroxine [Synthroid] 75 mcg Tablet 75 mcg PO DAILY hydroxyzine HCl 25 mg Tablet 25 mg PO DAILYP PRN (Reason: Itching) venlafaxine [Effexor XR] 75 mg Capsule,Extended Release 24hr 75 mg PO BID thiamine HCl (vitamin B1) 100 mg Tablet 100 mg PO DAILY spironolactone [Aldactone] 25 mg Tablet 25 mg PO DAILY oxycodone-acetaminophen [Percocet] 7.5-325 mg Tablet 1 tab PO TIDP PRN (Reason: Pain, Moderate) topiramate [Topamax] 100 mg Tablet 100 mg PO BID tizanidine [Zanaflex] 4 mg Capsule 4 mg PO TIDP PRN (Reason: muscle spasms) metoprolol tartrate 25 mg tablet 25 mg PO BID Held hydrochlorothiazide 25 mg Tablet 25 mg PO DAILY Hold Instructions: resume on 1 week after resolution of diarrhea sumatriptan succinate [Imitrex] 50 mg Tablet 50 mg PO DAILYP PRN (Reason: Migraine headaches) Hold Instructions: do not take until complete resolution if GI symptoms Rx Instructions: do not exceed 4 doses per 24 hrs omeprazole 40 mg capsule,delayed release(DR/EC) 40 mg PO BID Hold Instructions: until resolution of GI symptoms Problem Reconciliation Problems Reviewed?: Yes Patient Discharge Instructions ACTIVITY: Continue current activity DIET: continue same diet Patient Instructions: DI for Escherichia Coli (E. Coli) Infection, DI for Hypokalemia, DI for Colitis, DI for Shigellosis Print Language: Palauan Providers Primary Care Provider: JonnViral Admit Provider: Doroteo Majano Attending Provider: Doroteo Majano
[2024-11-01 12:00] VITALS: BP 124/75; PULSE 82; RESP 16; TEMP 36.8; O2SAT 97
--- NOTE | 2024-11-03 10:32 | SW/DCPLANNER ---
Spoke with patient on the phone. Patient stated that she is doing good just tired. Patient stated that she is aware of her upcoming appointments. Patient stated that she might have to reschedule her appointment for tomorrow. Patient stated that she was not prescribed any new medicines. Patient stated that she has no concerns or questions at this time. Danielle Nguyen
== END 2024-11-01 16:07 | disposition home or self-care (01) | DRG 372 ==
LOC: ER 10-29 02:23 → 2ND 10-29 02:36
PROVIDERS: Internal Medicine Gastroenterology; Student in an Organized Health Care Education/Training Program; Admitting Provider Internal Medicine Adolescent Medicine; Emergency Provider Emergency Medicine; PCP Family Medicine; Visit Provider Internal Medicine Adolescent Medicine
DX: A04.3 Enterohemorrhagic Escherichia coli infection (principal); E87.1 Hypo-osmolality and hyponatremia; Z68.41 Body mass index [BMI] 40.0-44.9, adult; K62.5 Hemorrhage of anus and rectum; B96.21 Shiga toxin-producing Escherichia coli [E. coli] [STEC] O157 as the cause of diseases classified elsewhere; R19.7 Diarrhea, unspecified; E87.6 Hypokalemia; N18.30 Chronic kidney disease, stage 3 unspecified; E66.9 Obesity, unspecified; I12.9 Hypertensive chronic kidney disease with stage 1 through stage 4 chronic kidney disease, or unspecified chronic kidney disease; M32.9 Systemic lupus erythematosus, unspecified; M79.7 Fibromyalgia; Z98.84 Bariatric surgery status; Z88.8 Allergy status to other drugs, medicaments and biological substances; Z79.891 Long term (current) use of opiate analgesic; Z79.899 Other long term (current) drug therapy
CPT/HCPCS: 36415; 74174; 80048; 80053; 82272; 83605; 83735; 83993; 84100; 84484; 85007; 85025; 86803; 87040; 87389; 87507; 93005; 99291; G0328; J1956; J2405; J2550; J3480; J7030; J7120; Q9967